=== PATIENT | female | born 1970 | race Caucasian/White ===

== ENCOUNTER 2016-03-30 15:11 | Emergency (ER) | payer OTHER ==
[2016-03-30 15:26] VITALS: TEMP 97.9; O2SAT 95
[2016-03-30] MEDS ORDERED: HYDROmorphONE/DILAUDID 1 MG/ML SYR IVP ONE (15:41)
[2016-03-30] MEDS ORDERED: NS 1,000 ML IV ONE (15:41)
--- NOTE | 2016-03-30 15:44 | EDPHY ---
H & P Stated Complaint: skiing and ran into tree, left wrist pain, denies LOC Time Seen by Provider: 03/30/16 15:35 HPI/ROS: CHIEF COMPLAINT: Left wrist pain HISTORY OF PRESENT ILLNESS: Patient is a 45-year-old female who states that she hit a tree with her left wrist while skiing passed it today. She had immediate pain in her left wrist. She states that hurts to move her hand. She denies other injuries. REVIEW OF SYSTEMS: Constitutional: denies: chills, fever, recent illness, recent injury EENTM: denies: blurred vision, double vision, nose congestion Respiratory: denies: cough, shortness of breath Cardiac: denies: chest pain, irregular heart rate, lightheadedness, palpitations Gastrointestinal/Abdominal: denies: abdominal pain, diarrhea, nausea, vomiting, blood streaked stools Genitourinary: denies: dysuria, frequency, hematuria, pain Musculoskeletal: Left wrist pain and swelling, see HPI Skin: denies: lesions, rash, jaundice, bruising Neurological: denies: headache, numbness, paresthesia, tingling, dizziness, weakness Hematologic/Lymphatic: denies: blood clots, easy bleeding, easy bruising Immunologic/allergic: denies: HIV/AIDS, transplant EXAM: GENERAL: Well-appearing, well-nourished and in no acute distress. HEAD: Atraumatic, normocephalic. EYES: Pupils equal round and reactive to light, extraocular movements intact, sclera anicteric, conjunctiva are normal. ENT: TMs normal, nares patent, oropharynx clear without exudates. Moist mucous membranes. NECK: Normal range of motion, supple without lymphadenopathy or JVD. LUNGS: Breath sounds clear to auscultation bilaterally and equal. No wheezes rales or rhonchi. HEART: Regular rate and rhythm without murmurs, rubs or gallops. ABDOMEN: Soft, nontender, normoactive bowel sounds. No guarding, no rebound. No masses appreciated. BACK: No CVA tenderness, no spinal tenderness, step-offs or deformities EXTREMITIES: Left wrist pain and mild swelling. Normal range of motion and capillary refill distally. Patient will not allow palpation. No elbow, shoulder or neck pain. NEUROLOGICAL: Cranial nerves II through XII grossly intact. Normal speech, normal gait. 5/5 strength, normal movement in all extremities, normal sensation PSYCH: Normal mood, normal affect. SKIN: Warm, dry, normal turgor, no visible rashes or lesions. Source: Patient Exam Limitations: No limitations - Personal History LMP (Females 10-55): Now Current Tetanus/Diphtheria Vaccine: Unsure Current Tetanus Diphtheria and Acellular Pertussis (TDAP): Unsure - Medical/Surgical History Hx Asthma: Yes Hx Chronic Respiratory Disease: Yes Hx Diabetes: No Hx Cardiac Disease: No Hx Renal Disease: Yes Hx Cirrhosis: Yes Hx Alcoholism: Yes Hx HIV/AIDS: No Hx Splenectomy or Spleen Trauma: No Other PMH: broken leg, knee, neck, pelvis, and tailbone. lupus, neuropathy, DJG , - Family History Significant Family History: No pertinent family hx - Social History Smoking Status: Heavy smoker Alcohol Use: Occasionally Drug Use: Marijuana Constitutional: Initial Vital Signs Temperature (C) 36.6 C 03/30/16 15:21 Heart Rate 96 03/30/16 15:21 Respiratory Rate 16 03/30/16 15:21 Blood Pressure 185/136 H 03/30/16 15:21 O2 Sat (%) 95 03/30/16 15:21 O2 Delivery Mode Room Air Allergies/Adverse Reactions: hydroxychloroquine sulfate [From Plaquenil] Allergy (Severe, Verified 03/30/16 15:27) Dyspnea Sulfa (Sulfonamide Antibiotics) Allergy (Severe, Verified 03/30/16 15:27) Hives prednisone Allergy (Intermediate, Verified 03/30/16 15:27) Other-Enter Comments Home Medications: Medication Instructions Recorded Cymbalta 03/30/16 Hydrocodone/APAP 5/325 [[place] 1 - 2 each PO Q4 PRN #14 tab 03/30/16 5/325] Medical Decision Making - Diagnostics Imaging: X-ray: Left wrist and forearm x-ray was obtained. I viewed the images myself on the PACS system. My interpretation of the images is: Distal radius and ulnar styloid nondisplaced comminuted fracture. The radiologist interpretation is same. Procedures: Procedure: Splint placement. A sugar-tong splint was applied. After application of the splint I returned and re-examined the patient. The splint was adequately immobilizing the joint and distal to the splint the patient's circulation and sensation was intact. ED Course/Re-evaluation: Patient tolerated splint placement well. She is eager to go home. She declines further workup or treatment. She feels much better after pain medication. We discussed follow-up with Orthopedics indications for returning. Additional discharge instructions given. Differential Diagnosis: Partial list of the Differential diagnosis considered include but were not limited to; wrist fracture, forearm fracture, hand fracture and although unlikely based on the history and physical exam, I also considered infection, non accidental trauma. I discussed these differential diagnoses and the plan with the patient as well as the usual and expected course. The patient understands that the diagnosis is provisional and that in medicine we are not always correct and that further workup is often warranted. Usual and customary warnings were given. All of the patient's questions were answered. The patient was instructed to return to the emergency department should the symptoms at all worsen or return, otherwise to followup with the physician as we discussed. - Data Points Medications Given: Discontinued Medications Hydromorphone HCl (Dilaudid) 1 mg IVP EDNOW ONE Stop: 03/30/16 15:42 Last Admin: 03/30/16 16:10 Dose: 1 mg Sodium Chloride (Ns) 1,000 mls @ 0 mls/hr IV EDNOW ONE PRN Reason: Wide Open Stop: 03/30/16 15:42 Last Admin: 03/30/16 16:00 Dose: 1,000 mls Departure - Departure Disposition: Home, Routine, Self-Care Clinical Impression: Wrist fracture, left Qualifiers: Encounter type: initial encounter Fracture type: closed Qualifier Code: ( S62.102A) Fracture of unspecified carpal bone, left wrist, initial encounter for closed fracture Condition: Fair Instructions: Wrist Fracture in Adults (ED) Referrals: IN STATE,. [Primary Care Provider] - As per Instructions Taj Tadeo MD [Medical Doctor] - As per Instructions Prescriptions: Hydrocodone/APAP 5/325 [[place] 5/325] 1 - 2 each PO Q4 PRN #14 tab PRN Reason: Pain, Mild
--- NOTE | 2016-03-30 16:03 | DX ---
Left forearm 2 views History: Skiing accident, pain Comparison: Left wrist same day. Findings: There is a comminuted nondisplaced intra-articular fracture of the distal radius. There is a comminuted nondisplaced fracture of the ulnar styloid. Alignment is normal. Osteopenia is suspected . Impression: 1. Comminuted nondisplaced intra-articular fracture of the distal radius. 2. Comminuted nondisplaced fracture of the ulnar styloid.
--- NOTE | 2016-03-30 16:03 | DX ---
Left wrist 3 views History: Skiing accident, pain. Comparison: Forearm same day. Findings: There is a comminuted nondisplaced intra-articular fracture of the distal radius. A comminu belem nondisplaced fracture of the ulnar styloid is noted. Alignment is normal. Osteopenia is suspected . Impression: 1. Comminuted nondisplaced intra-articular fracture of the distal radius. 2. Comminuted nondisplaced fracture of the ulnar styloid. 3. Probable osteopenia.
[2016-03-30 16:14] VITALS: BP 158/84; PULSE 76; RESP 18
== END 2016-03-30 18:07 | disposition home or self-care (01) ==
DX: S52.515A Nondisplaced fracture of left radial styloid process, initial encounter for closed fracture (principal); J45.909 Unspecified asthma, uncomplicated; F17.200 Nicotine dependence, unspecified, uncomplicated; V00.328A Other snow-ski accident, initial encounter; Y99.8 Other external cause status; Y93.23 Activity, snow (alpine) (downhill) skiing, snowboarding, sledding, tobogganing and snow tubing
CPT/HCPCS: 73090; 73110; 96361; 96374; 99284; A4565; J1170